=== PATIENT | female | born 1990 | race Caucasian/White ===

== ENCOUNTER → 2017-01-27 | Outpatient (REF) | payer OTHER ==
[~2017-01-27] MED LIST: COLA100C3 PO; IBUP80TA PO; MOTR200T44 PO; PERCOCET PO; PRENTAB54 PO; TYLE167L PO
== END ==
LOC: M LAB REF 16:32
PROVIDERS: ATTEND Neurological Surgery
DX: Z01.818 Encounter for other preprocedural examination (principal); Q85.00 Neurofibromatosis, unspecified

== ENCOUNTER → 2017-01-29 | Outpatient (CLI) | payer OTHER ==
--- NOTE | 2017-01-29 12:53 | ECGEPIP ---
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
--- NOTE | 2017-01-29 13:15 | REP ---
Clinical: Preoperative assessment . Comparison: 01/29/2017 . Technique: PA and lateral. Findings: The mediastinum and cardiac silhouette are normal. The lung [place] are clear and without acute consolidation, effusion, or pneumothorax. The skeletal structures are intact and normal. Impression: 1. No acute cardiopulmonary process. Signed by Bebeto Urbina MD 01/29/2017 01:07 P
[2017-01-29 13:47] LABS: BASO % 0.2 % (0.0-1.0); EOS # 0.2 K/mm3 (0.0-0.50); EOS % 2.7 % (0.0-3.0); LARGE UNSTAINED CELL # 0.1 K/mm3 (0.0-0.4); LARGE UNSTAINED CELL % 1.5 % (0.0-4.0); LYMPH % 22.7 % (24.0-44.0); MEAN CORPUSCULAR HGB CONC 32.8 g/dl (32.0-36.5); MEAN CORPUSCULAR VOLUME 94.6 fl (80.0-96.0); MONO # 0.4 K/mm3 (0.0-0.8); MONO % 4.9 % (0.0-5.0); NEUTROPHILS # 5.7 K/mm3 (1.8-7.7); PLATELET COUNT, AUTOMATED 237 k/mm3 (150-450); RED CELL DISTRIBUTION WIDTH 13.1 % (11.5-14.5); WHITE BLOOD COUNT 8.4 K/mm3 (4.0-10.0)
[2017-01-29 13:53] LABS: INR 0.97
[2017-01-29 14:31] LABS: ALBUMIN/GLOBULIN RATIO 1.33 (1.00-1.93); ALKALINE PHOSPHATASE 52 U/L (45-117); ALT/SGPT 24 U/L (12-78); ANION GAP 6 MEQ/L (8-16); AST/SGOT 18 U/L (15-37); BILIRUBIN,TOTAL 0.4 MG/DL (0.2-1.0); BLOOD UREA NITROGEN 10 MG/DL (7-18); CALCIUM LEVEL 8.9 MG/DL (8.5-10.1); CARBON DIOXIDE LEVEL 30 MEQ/L (21-32); CHLORIDE LEVEL 107 MEQ/L (98-107); CREATININE FOR GFR 0.69 MG/DL (0.55-1.02); GLOMERULAR FILTRATION RATE > 60.0 (>60); GLUCOSE, FASTING 75 MG/DL (70-105); POTASSIUM SERUM 4.4 MEQ/L (3.5-5.1); SODIUM LEVEL 143 MEQ/L (136-145)
== END ==
LOC: M LAB 12:33
PROVIDERS: ATTEND Neurological Surgery
DX: Z01.818 Encounter for other preprocedural examination (principal)

== ENCOUNTER 2017-02-13 06:58 | Day surgery (SDC) | payer OTHER ==
[~2017-02-13] VITALS: Ht 160 cm; Wt 60.0 kg
[~2017-02-13 06:58] MED LIST changes: +ACET50TAOT PO; -COLA100C3 PO; +COLA100C5 PO; +PRENTAB55 PO
[2017-02-13] MEDS ORDERED: LIDOCAINE 1% MDV 20ML VIAL SC ONE (07:15)
[2017-02-13] MEDS ORDERED: LR 1,000 ML IV ONE (07:15)
[2017-02-13] MEDS ORDERED: ceFAZolin 2 GM/D5W 50 ML IV BAG (J0690) As Ordered ONE (07:34)
[2017-02-13] MEDS ORDERED: PROPOFOL 200 MG/20 ML VIAL As Ordered ONE (07:47)
[2017-02-13] MEDS ORDERED: fentaNYL 250 MCG/5 ML INJECTION (J3010) As Ordered ONE (07:47)
[2017-02-13] MEDS ORDERED: ROCURONIUM BROMIDE 50 MG/5 ML VIAL/SYRINGE As Ordered ONE (07:47)
[2017-02-13] MEDS ORDERED: LIDOCAINE 2% INJ 100 MG/5 ML SDV (FOR ANES.) As Ordered ONE (07:47)
[2017-02-13] MEDS ORDERED: MIDAZOLAM INJ 2 MG/2 ML VIAL (J2250) As Ordered ONE (07:48)
[2017-02-13 08:01] LABS: CONTROL LINE UCG INT CTR LINE PRESENT
[2017-02-13] MEDS ORDERED: THROMBIN SOLN 20,000 UNITS KIT As Ordered ONE (11:11)
[2017-02-13] MEDS ORDERED: methylPREDNISolone SUSP 40 MG/ML (DEPO-medrol) VIAL (J1030) As Ordered ONE (11:12)
[2017-02-13] MEDS ORDERED: BACITRACIN PWD 50,000 UNITS VIAL As Ordered ONE (11:12)
[2017-02-13] MEDS ORDERED: SEVOFLURANE INHAL SOLN 250 ML BTL As Ordered ONE (11:32)
[2017-02-13] MEDS ORDERED: KETOROLAC 60 MG/2 ML VIAL (J1885) As Ordered ONE (13:09)
[2017-02-13] MEDS ORDERED: dexameTHASONE 4 MG/ML 1ML VIAL (J1100) As Ordered ONE (13:09)
[2017-02-13] MEDS ORDERED: ONDANSETRON 4MG/2ML VIAL (J2405) IV PRN (13:15)
[2017-02-13] MEDS ORDERED: KETOROLAC 30 MG/ML VIAL (J1885) IV PRN (13:15)
[2017-02-13] MEDS ORDERED: fentaNYL 100 MCG/2 ML INJECTION (J3010) IV PRN (13:15)
[2017-02-13] MEDS ORDERED: MEPERIDINE INJ 25 MG/ML VIAL (J2175) IV PRN (13:15)
[2017-02-13] MEDS ORDERED: LR 1,000 ML IV SCH (13:15)
[2017-02-13] MEDS: PERCOCET 5MG/325MG TAB PO PRN ×2 (13:33→15:01)
[2017-02-13 15:30] VITALS: BP 120/70
--- NOTE | 2017-02-14 00:51 | RO ---
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 POSTPROCEDURE DIAGNOSIS: Endometriosis per frozen section. PROCEDURE: Excision of densely adherent mass from the anterior rectus sheath on the right. SURGEON: Dr. Caroline Teran GAS APPLIANCE REPAIRER: None. ANESTHESIA: General. FINDINGS: Please see my office note for detailed preoperative evaluation and discussions. The patient had a painful lump develop recently, which appeared to be getting more tender and painful, and enlarging in size. The radiologic images suggested a neurofibroma. The patient was seen in the preoperative area with her . The patient and her were aware of all options, risk, scope, expected outcome , sequel and complications of the proposed procedure and understood no guarantees of any kind could be given. The patient and her understood the risk of surgery, including , infection, bleeding, persistence or worsening of symptoms, failure to obtain pathological diagnosis or clear margin of the lesion even if there is gross total removal of the lesion. Also understood the risk includes failure of surgery, need for multiple surgeries, infection, bleeding, persistence or worsening of symptoms and/or deficits, recurrence of the lesion, pulmonary embolism (PE), deep vein thrombosis (DVT) myocardial infarction ([place]), and/or any catastrophic sequel. The patient states she has decided to proceed with it, and she is willing to take any or all risks for any possible benefit as she can no longer live with this painful mass. DESCRIPTION OF PROCEDURE: After informed consent and after all matters pertaining to surgery, anesthesia and followup care were discussed, she was taken to the operating room at her request. Once in the operating room, general anesthesia was given by the anesthesia service. The area of surgery was prepped and draped in the usual sterile fashion. A couple of inches of incision was given at the lateral border of the right rectus muscle. Alveolar layer was reached and incised. Cut edges of the blood vessels were coagulated with bipolar cautery. Deep fascia was reached and mass was encountered at the anterior rectus sheath. It was densely adherent and irregular in form. A demarcation was created with the surrounding tissue, and the anterior rectus sheath had to be removed. It was densely adherent to it and several centimeters of margins were excised around it and specimen was sent for pathological diagnosis. The frozen section report came as endometriosis with no evidence of neurofibroma. Hemostasis was checked and secured. Blood loss was negligible, maybe a few mL, and the wound was closed in anatomic layers. The patient tolerated the procedure well and was transferred to the recovery room in stable condition. Operative findings were discussed with her on two occasions, once after the surgery and once after frozen section report was received. At the time of dictation, the patient is in the recovery room. She is awake and alert, oriented times three without any obvious symptoms or deficits. BAMBI
== END 2017-02-13 15:30 | disposition home or self-care (01) ==
LOC: UNDOADMIN 06:58 → M OR 06:58 → M SDC 06:58 → EDSTATUS 08:45 → M SDC 15:30 → UNDODISIN 15:30
PROVIDERS: ATTEND Neurological Surgery
DX: N80.8 Other endometriosis (principal); F17.210 Nicotine dependence, cigarettes, uncomplicated
CPT/HCPCS: 20205; 84703; 88307; J0690; J1030; J1100; J1885; J2250; J3010